=== PATIENT | female | born 1955 | race Caucasian/White ===

== ENCOUNTER 2021-05-12 13:00 | Inpatient (IN) | payer MEDICARE, OTHER ==
[2021-05-12] MEDS ORDERED: MORPHINE SULFATE 4 MG/ML SYRINGE IVP STA ×2 (13:20→13:40)
[2021-05-12] MEDS ORDERED: SODIUM CHLORIDE 0.9% 1,000 ML IV ONE (13:20)
[2021-05-12] MEDS ORDERED: ONDANSETRON 4 MG/2 ML VIAL IVP STA (13:20)
--- NOTE | 2021-05-12 13:24 | ED ---
Fall HPI - General Source: patient, EMS, RN notes reviewed Mode of arrival: EMS Limitations: physical limitation <Alexander Padilla - Last Filed: 05/12/21 14:02> <Elmer Quezada - Last Filed: 05/12/21 14:46> - General Chief Complaint: Fall Stated Complaint: Fall Time Seen by Provider: 05/12/21 13:14 - History of Present Illness Initial Comments: 66-year-old female presents emergency Department chief complaint of fall, right hip pain. Patient states she had a trip and fall last night. Patient laid on the ground. Throughout the night. Patient states she denies hitting her head and she is not taking blood thinners. She's had no prior orthopedic surgeries. Patient was given fentanyl by EMS and which she states has helped her pain. Patient denies abdominal pain no chest pain or shortness of breath. (Alexander Padilla) - Related Data Home Medications Medication Instructions Recorded Confirmed LORazepam [Ativan] 0.5 mg PO BID 07/07/14 07/07/14 Omeprazole [PriLOSEC] 20 mg PO AC-BRKFST 07/07/14 07/07/14 PARoxetine HCL 30 mg PO DAILY 07/07/14 07/07/14 Ranitidine HCl [Zantac] 150 mg PO HS 07/07/14 07/07/14 traZODone HCL [traZODone] 300 mg PO BID 07/07/14 07/07/14 Allergies Allergy/AdvReac Type Severity Reaction Status Date / Time No Known Allergies Allergy Verified 07/07/14 16:06 Review of Systems ROS Other: All systems not noted in ROS Statement are negative. <Alexander Padilla - Last Filed: 05/12/21 14:02> ROS Other: All systems not noted in ROS Statement are negative. <Elmer Quezada - Last Filed: 05/12/21 14:46> ROS Statement: Those systems with pertinent positive or pertinent negative responses have been documented in the HPI. Past Medical History Past Medical History: Fibromyalgia Additional Past Medical History / Comment(s): CHRONIC FATIGUE SYNDROME, SPINAL STENOSIS History of Any Multi-Drug Resistant Organisms: None Reported Past Surgical History: Tonsillectomy Additional Past Surgical History / Comment(s): CERVICAL SURGERY, BREAST CANCER LEFT BREAST REMOVED Past Psychological History: Anxiety, Depression Past Alcohol Use History: None Reported Past Drug Use History: None Reported <Alexander Padilla - Last Filed: 05/12/21 14:02> General Exam Limitations: physical limitation General appearance: alert, in no apparent distress Head exam: Present: atraumatic, normocephalic, normal inspection ENT exam: Present: mucous membranes dry Neck exam: Present: normal inspection, full ROM. Absent: tenderness Respiratory exam: Present: normal lung sounds bilaterally. Absent: respiratory distress, wheezes, rales, rhonchi, stridor Cardiovascular Exam: Present: normal rhythm, tachycardia, normal heart sounds. Absent: systolic murmur, diastolic murmur, rubs, gallop, clicks GI/Abdominal exam: Present: soft, normal bowel sounds. Absent: distended, tenderness, guarding, rebound, rigid Extremities exam: Present: other (Right hip is tender with palpation, leg is shortened and rotated, neurovascular intact) Neurological exam: Present: alert, oriented X3 Skin exam: Present: warm, dry, intact, normal color. Absent: rash <Alexander Padilla - Last Filed: 05/12/21 14:02> Course Vital Signs 05/12/21 05/12/21 13:04 13:20 Temperature 98.7 F Pulse Rate 108 H 116 H Respiratory 18 Rate Blood Pressure 146/79 O2 Sat by Pulse 95 92 L Oximetry Medical Decision Making - Lab Data Result diagrams: 05/12/21 13:21 05/12/21 13:21 <Alexander Padilla - Last Filed: 05/12/21 14:02> - Lab Data Result diagrams: 05/12/21 13:21 05/12/21 13:21 <Elmer Quezada - Last Filed: 05/12/21 14:46> - Medical Decision Making X-ray shows evidence of right IT fracture. Patient case discussed with nisha on- call for advanced orthopedics patient be admitted with medicine consult. (Alexander Padilla) EKG shows sinus tachycardia at 112 bpm MS interval is 170 QRS 72 QT interval 346 QTC is 472. EKG shows no ST segment elevation or depression. (Elmer Quezada) - Lab Data Lab Results 05/12/21 05/12/21 05/12/21 Range/Units 13:21 13:21 13:21 WBC 14.3 H (3.8-10.6) k/uL RBC 3.51 L (3.80-5.40) m/uL Hgb 11.6 (11.4-16.0) gm/dL Hct 33.6 L (34.0-46.0) % MCV 95.7 (80.0-100.0) fL MCH 33.1 (25.0-35.0) pg MCHC 34.6 (31.0-37.0) g/dL RDW 13.0 (11.5-15.5) % Plt Count 370 (150-450) k/uL MPV 6.6 Neutrophils % 86 % Lymphocytes % 4 % Monocytes % 8 % Eosinophils % 1 % Basophils % 0 % Neutrophils # 12.2 H (1.3-7.7) k/uL Lymphocytes # 0.6 L (1.0-4.8) k/uL Monocytes # 1.1 H (0-1.0) k/uL Eosinophils # 0.1 (0-0.7) k/uL Basophils # 0.0 (0-0.2) k/uL PT 9.7 (9.0-12.0) sec INR 0.9 (<1.2) APTT 23.1 (22.0-30.0) sec Sodium 129 L (137-145) mmol/L Potassium 4.2 (3.5-5.1) mmol/L Chloride 98 (98-107) mmol/L Carbon Dioxide 24 (22-30) mmol/L Anion Gap 7 mmol/L BUN 9 (7-17) mg/dL Creatinine 0.36 L (0.52-1.04) mg/dL Est GFR (CKD-EPI)AfAm >90 (>60 ml/min/1.73 sqM) Est GFR (CKD-EPI)NonAf >90 (>60 ml/min/1.73 sqM) Glucose 115 H (74-99) mg/dL Calcium 9.2 (8.4-10.2) mg/dL Total Bilirubin 0.7 (0.2-1.3) mg/dL AST 41 H (14-36) U/L ALT 36 H (4-34) U/L Alkaline Phosphatase 121 (38-126) U/L Creatine Kinase 223 H (30-135) U/L Total Protein 6.9 (6.3-8.2) g/dL Albumin 4.1 (3.5-5.0) g/dL Disposition <Alexander Padilla - Last Filed: 05/12/21 14:02> <Elmer Quezada - Last Filed: 05/12/21 14:46> Clinical Impression: Fall, Fracture, intertrochanteric, right femur Disposition: ADMITTED IP TO THIS HOSP Condition: Fair
[2021-05-12 13:34] LABS: Basophils % (A) 0 %; Eosinophils # (A) 0.1 k/uL (0-0.7); Eosinophils % (A) 1 %; HCT 33.6 % (34.0-46.0); HGB 11.6 gm/dL (11.4-16.0); Lymphocytes # (A) 0.6 k/uL (1.0-4.8); Lymphocytes % (A) 4 %; MCH 33.1 pg (25.0-35.0); MCHC 34.6 g/dL (31.0-37.0); MCV 95.7 fL (80.0-100.0); Mean Platelet Volume 6.6; Monocytes # (A) 1.1 k/uL (0-1.0); Monocytes % (A) 8 %; Neutrophils # (A) 12.2 k/uL (1.3-7.7); Neutrophils % (A) 86 %; Platelet Count 370 k/uL (150-450); RBC 3.51 m/uL (3.80-5.40); WBC 14.3 k/uL (3.8-10.6)
[2021-05-12 13:51] LABS: INR 0.9 (<1.2); Partial Thromboplastin Time 23.1 sec (22.0-30.0); Prothrombin Time 9.7 sec (9.0-12.0)
[2021-05-12 14:02] LABS: ALT 36 U/L (4-34); AST 41 U/L (14-36); African American GFR (CKD) >90 (>60 ml/min/1.73 sqM); Albumin 4.1 g/dL (3.5-5.0); Alkaline Phosphatase 121 U/L (38-126); Anion Gap 7 mmol/L; Blood Urea Nitrogen 9 mg/dL (7-17); Calcium 9.2 mg/dL (8.4-10.2); Carbon Dioxide 24 mmol/L (22-30); Chloride 98 mmol/L (98-107); Creatine Kinase 223 U/L (30-135); Glucose 115 mg/dL (74-99); Non-African American GFR(CKD) >90 (>60 ml/min/1.73 sqM); Potassium 4.2 mmol/L (3.5-5.1); Sodium 129 mmol/L (137-145); Total Bilirubin 0.7 mg/dL (0.2-1.3); Total Protein 6.9 g/dL (6.3-8.2)
[2021-05-12] MEDS ORDERED: NALOXONE 0.4 MG/ML 1 ML VIAL IV PRN (14:03)
[2021-05-12] MEDS ORDERED: ONDANSETRON 4 MG/2 ML VIAL IVP PRN (14:03)
--- NOTE | 2021-05-12 14:04 | XR ---
EXAMINATION TYPE: XR chest 1V DATE OF EXAM: 05/12/2021 COMPARISON: NONE HISTORY: Fall TECHNIQUE: Single frontal view of the chest is obtained. FINDINGS: There is no focal air space opacity, pleural effusion, or pneumothorax seen. The cardiac silhouette size is within normal limits. The osseous structures are intact. IMPRESSION: No acute process.
--- NOTE | 2021-05-12 14:05 | XR ---
EXAMINATION TYPE: XR Hip RT and AP Pelvis DATE OF EXAM: 05/12/2021 COMPARISON: NONE HISTORY: Pain after fall TECHNIQUE: A single AP view of the pelvis is obtained. Two views of the right hip are obtained. FINDINGS There is an acute, displaced right intertrochanteric fracture with foreshortening at the fracture sit e. Vascular calcifications are noted. IMPRESSION: Acute, displaced intertrochanteric right hip fracture.
[2021-05-12] MEDS: SODIUM CHLORIDE 0.9% 1,000 ML IV SCH (14:25)
[2021-05-12 14:54] LABS: Appearance,Urine Clear (Clear); Bilirubin,Urine Negative (Negative); Blood,Urine Negative (Negative); Color,Urine Yellow; Glucose,Urine (UA) Negative (Negative); Ketones,Urine Negative (Negative); Leukocyte Esterase,Urine Negative (Negative); Nitrite,Urine Negative (Negative); Protein,Urine Negative (Negative); Specific Gravity,Urine 1.015 (1.001-1.035); Urobilinogen,Urine <2.0 mg/dL (<2.0)
[2021-05-12] MEDS ORDERED: HYDROcodone/APAP 7.5-325MG 1 EACH TAB PO PRN (15:20)
[2021-05-12] MEDS ORDERED: CYCLOBENZAPRINE 10 MG TAB PO PRN (15:20)
[2021-05-12] MEDS ORDERED: TRANEXAMIC ACID 1,000 MG in SODIUM CHLORIDE 0.9% 250 ML IV ONE (15:24)
--- NOTE | 2021-05-12 15:37 | P.HPOR ---
History of Present Illness H&P Date: 05/12/21 Chief Complaint: R hip pain 66 yo female presented to ED with c/o Rt hip pain. She was at home when she states she is unsure what happened but tripped and fell onto her R hip causing severe pain. She was unable to ambulate after and called EMS. She was transported to [facility] for evaluation. She states pain in her R hip with motion, better at rest. Denies any numbness or tingling. Denies any other injury. States no LOC of BHT with fall. Does not c/o hurting anywhere else at this time. No f/c/sob/cp. Review of Systems 14 points review of systems completed and as stated in HPI, all other systems reviewed are negative. Past Medical History Past Medical History: Fibromyalgia Additional Past Medical History / Comment(s): CHRONIC FATIGUE SYNDROME, SPINAL STENOSIS History of Any Multi-Drug Resistant Organisms: None Reported Past Surgical History: Tonsillectomy Additional Past Surgical History / Comment(s): CERVICAL SURGERY, BREAST CANCER LEFT BREAST REMOVED Past Psychological History: Anxiety, Depression Past Alcohol Use History: None Reported Past Drug Use History: None Reported Medications and Allergies Home Medications Medication Instructions Recorded Confirmed Type Omeprazole [PriLOSEC] 20 mg PO DAILY 07/07/14 05/12/21 History Albuterol Sulfate [Ventolin HFA] 2 puff INHALATION RT-QID PRN 05/12/21 05/12/21 History Cholecalciferol [Vitamin D3 (25 100 mcg PO DAILY 05/12/21 05/12/21 History Mcg = 1000 Iu)] Fluticasone Propion/Salmeterol 1 puff INHALATION RT-BID 05/12/21 05/12/21 History [Wixela 500-50 Inhub] Furosemide [Lasix] 20 mg PO DAILY 05/12/21 05/12/21 History Gabapentin 300 mg PO DAILY@1400 05/12/21 05/12/21 History Gabapentin 600 mg PO BID@0900,2100 05/12/21 05/12/21 History HYDROcodone/APAP 10-325MG [Moseley 1 tab PO BID 05/12/21 05/12/21 History 10-325] Methocarbamol [Robaxin-750] 750 mg PO TID 05/12/21 05/12/21 History Mirtazapine [Remeron] 15 mg PO HS 05/12/21 05/12/21 History Potassium Chloride ER [K-Dur 10] 10 meq PO BID 05/12/21 05/12/21 History Sodium Chloride Tab 1 gm PO TID 05/12/21 05/12/21 History Tiotropium 2.5 Mcg/Puff [Spiriva 2 puff INHALATION RT-DAILY 05/12/21 05/12/21 History Respimat 2.5 Mcg] Allergies Allergy/AdvReac Type Severity Reaction Status Date / Time No Known Allergies Allergy Verified 05/12/21 14:59 Physical Examination Osteopathic Statement: *. No significant issues noted on an osteopathic structural exam other than those noted in the History and Physical/Consult. Patient is alert and oriented 3 appears well-nourished well-hydrated is in no acute distress. They does not appear septic. somewhat Unkempt Tenderness palpation over the greater trochanter on the right was swelling and ecchymosis in this area. no tenderness to palpation of the cervical thoracic or lumbar spine. Lower extremities with 5 out of 5 strength in all major muscle groups Upper extremities show 5/5 strength in all major muscle groups. There is FROM that is painless of the b/l UE and LE in all major joints. They are intact to light touch sensation in L2 to S1 nerve distribution. DTR 2 out of 4 off Patient has palpable dorsalis pedis was posterior tibial pulses. positive radial and ulnar pulses bilaterally Compartments are soft and compressible. Patient shows a negative Homans, Lopez's, negative Babinski's negative clonus bilaterally. negative straight leg raise bilaterally. No tensioning signs. Cranial nerves II through XII are grossly intact. Overall alignment is well-maintained in the sagittal coronal planes. Pain with logroll of right hip Results AP pelvis and right hip films demonstrate a right reverse oblique intertrochanteric with subtrochanteric extension fracture is displaced rotated comminuted. No other fractures noted within the pelvis or hips. Femur films are pending. - Labs Labs: Abnormal Lab Results - Last 24 Hours (Table) 05/12/21 05/12/21 Range/Units 13:21 13:21 WBC 14.3 H (3.8-10.6) k/uL RBC 3.51 L (3.80-5.40) m/uL Hct 33.6 L (34.0-46.0) % Neutrophils # 12.2 H (1.3-7.7) k/uL Lymphocytes # 0.6 L (1.0-4.8) k/uL Monocytes # 1.1 H (0-1.0) k/uL Sodium 129 L (137-145) mmol/L Creatinine 0.36 L (0.52-1.04) mg/dL Glucose 115 H (74-99) mg/dL AST 41 H (14-36) U/L ALT 36 H (4-34) U/L Creatine Kinase 223 H (30-135) U/L H & H 05/12/21 Range/Units 13:21 Hgb 11.6 (11.4-16.0) gm/dL Hct 33.6 L (34.0-46.0) % Coagulation 05/12/21 Range/Units 13: INR 0.9 (<1.2) Result Diagrams: 05/12/21 13:21 05/12/21 13:21 Assessment and Plan Assessment: 66-year-old female status post fall from standing right hip reverse oblique intratrochanteric/subtrochanteric fracture displaced comminuted closed rotated Plan: -Appreciate consumer services consultant and team management. - medical clearance for surgery -Activity: bedrest at this time - Stephens catheter in place -Pain control: continue with morphine IV for breakthrough pain had Moseley 7.5 as well as Flexeril for muscle spasms and pain is well -Meds: [reviewed] -GI ppx: senna, Miralax -DVT PPX: mechanical with SCDs and CACHORRO hose at this time -Hygiene: maintaining good hygiene. Hibiclens shower or wipes before surgery tomorrow -Encourage IS 10x/hr - plan on OR for intramedullary nail fixation and open reduction internal fixation right hip on 05/13/2021 -Dispo: [Pending] Time with Patient: Greater than 30
[2021-05-12] MEDS ORDERED: TRANEXAMIC ACID 1,000 MG in SODIUM CHLORIDE 0.9% 100 ML IV STA (15:55)
[2021-05-12] MEDS ORDERED: TRANEXAMIC ACID 1,000 MG in SODIUM CHLORIDE 0.9% 100 ML IVPB ONE (16:00)
--- NOTE | 2021-05-12 16:02 | XR ---
EXAMINATION TYPE: XR femur RT DATE OF EXAM: 05/12/2021 CLINICAL HISTORY: Fracture TECHNIQUE: Two views of the distal right femur are obtained. COMPARISON: None FINDINGS: There is no definite acute fracture or dislocation of the distal right femur. There is a ri ght knee joint effusion and soft tissue swelling. IMPRESSION: There is no acute fracture or dislocation in the distal right femur. There is a right kn ee joint effusion and soft tissue swelling about the knee.
[2021-05-12] MEDS: MORPHINE SULFATE 4 MG/ML SYRINGE IV PRN (18:38)
[2021-05-13] MEDS: GABAPENTIN 300 MG CAP PO SCH ×3 (00:03→21:44)
[2021-05-13] MEDS: MIRTAZAPINE 15 MG TAB PO SCH ×2 (00:03→21:46)
[2021-05-13] MEDS: MORPHINE SULFATE 4 MG/ML SYRINGE IV PRN ×3 (00:03→11:26)
--- NOTE | 2021-05-13 03:24 | P.CONS ---
History of Present Illness - Reason for Consult Consult date: 05/13/21 - History of Present Illness Patient is a 66 -year-old female with a PMH of COPD and fibromyalgia and osteoporosis presented to the emergency room after a fall. The patient had reported that she tripped and fell yesterday while trying to feed her cats. Patient noted that she fell onto her right hip and was unable to get up and had to wait until the following day when her friend came in to check on her and found her on the ground. The patient reports no further pain. She denied additional complaints. Denied chest discomfort, shortness of breath, fever, chills, cough. Denied abdominal pain, nausea, vomiting, diarrhea. Patient reports that she lives by herself and is able to complete most of her ADLs independently. Denied experiencing exertional dyspnea or chest pain. EKG in the emergency room revealed sinus tachycardia at 112 bpm with left anterior fascicular block. Chest x-ray was unremarkable. With a right hip x-ray showing an acute displaced intertrochanteric right hip fracture. Laboratory evaluation was remarkable for WBC count of 14.3, sodium 139, AST 41, ALT 36, CK 223, and UA unremarkable. Review of systems: Pertinent positives and negatives as discussed in HPI, a complete review of sys tems was performed and all other systems are negative. Physical examination: General: non toxic, no distress, appears at stated age, normal weight Derm: no unusual rashes/lesions no unusual ecchymoses, warm, dry Head: atraumatic, normocephalic, symmetric Eyes: EOMI, no lid lag, anicteric sclera, pupils equal round reactive to light ENT: Nose and ears atraumatic, no thrush, no pharyngeal erythema Neck: No thyromegaly, no cervical lymphadenopathy, trachea midline, supple Mouth: no lip lesion, mucus membranes moist Cardiovascular: S1S2 reg, no murmur, positive posterior tibial pulse bilateral, no edema, capillary refill less than 2 seconds Lungs: CTA bilateral, no rhonchi, no rales , no accessory muscle use Abdominal: soft, nontender to palpation, no guarding, no appreciable organomegaly, normal bowel sounds Ext: no gross muscle atrophy, muscle strength 5 out of 5 in all 4 extremities g rossly except for right lower extremity due to pain, no contractures, Neuro: CN II-XI grossly intact, light touch intact all 4 extremities, finger to nose within normal limits, Psych: Alert, oriented, appropriate affect Assessment/plan Preoperative evaluation for right hip fracture -Patient with METS > 4, although with sodium 129. Continue with gentle hydration and monitor BMP -Would recommend to hold off on surgery if sodium less than 130 -Defer management including pain control and DVT prophylaxis to the surgery service Chronic conditions: COPD -Continue with home meds Past Medical History Past Medical History: Fibromyalgia Additional Past Medical History / Comment(s): CHRONIC FATIGUE SYNDROME, SPINAL STENOSIS History of Any Multi-Drug Resistant Organisms: None Reported Past Surgical History: Tonsillectomy Additional Past Surgical History / Comment(s): CERVICAL SURGERY, BREAST CANCER LEFT BREAST REMOVED Past Psychological History: Anxiety, Depression Past Alcohol Use History: None Reported Past Drug Use History: None Reported Medications and Allergies Home Medications Medication Instructions Recorded Confirmed Type Omeprazole [PriLOSEC] 20 mg PO DAILY 07/07/14 05/12/21 History Albuterol Sulfate [Ventolin HFA] 2 puff INHALATION RT-QID PRN 05/12/21 05/12/21 History Cholecalciferol [Vitamin D3 (25 100 mcg PO DAILY 05/12/21 05/12/21 History Mcg = 1000 Iu)] Fluticasone Propion/Salmeterol 1 puff INHALATION RT-BID 05/12/21 05/12/21 History [Wixela 500-50 Inhub] Furosemide [Lasix] 20 mg PO DAILY 05/12/21 05/12/21 History Gabapentin 300 mg PO DAILY@1400 05/12/21 05/12/21 History Gabapentin 600 mg PO BID@0900,2100 05/12/21 05/12/21 History HYDROcodone/APAP 10-325MG [Bob White 1 tab PO BID 05/12/21 05/12/21 History 10-325] Methocarbamol [Robaxin-750] 750 mg PO TID 05/12/21 05/12/21 History Mirtazapine [Remeron] 15 mg PO HS 05/12/21 05/12/21 History Potassium Chloride ER [K-Dur 10] 10 meq PO BID 05/12/21 05/12/21 History Sodium Chloride Tab 1 gm PO TID 05/12/21 05/12/21 History Tiotropium 2.5 Mcg/Puff [Spiriva 2 puff INHALATION RT-DAILY 05/12/21 05/12/21 History Respimat 2.5 Mcg] Allergies Allergy/AdvReac Type Severity Reaction Status Date / Time No Known Allergies Allergy Verified 05/12/21 14:59 Physical Exam Vitals: Vital Signs Temp Pulse Pulse Resp BP BP Pulse Ox 05/13/21 00:32 98.2 F 102 H 14 109/63 98 05/12/21 20:50 98 05/12/21 20:35 98.6 F 119 H 18 114/67 83 L 05/12/21 18:39 89 16 122/75 94 L 05/12/21 17:00 97.6 F 112 H 16 112/80 94 L 05/12/21 13:20 98.7 F 116 H 18 146/79 92 L 05/12/21 13:04 108 H 95 Intake and Output 05/12/21 05/12/21 05/13/21 14:59 22:59 06:59 Output Total 800 Balance -800 Output: Urine 800 Other: Weight 42.638 kg Results CBC & Chem 7: 05/12/21 13:21 05/12/21 13:21 Labs: Abnormal Lab Results - Last 24 Hours (Table) 05/12/21 05/12/21 Range/Units 13:21 13:21 WBC 14.3 H (3.8-10.6) k/uL RBC 3.51 L (3.80-5.40) m/uL Hct 33.6 L (34.0-46.0) % Neutrophils # 12.2 H (1.3-7.7) k/uL Lymphocytes # 0.6 L (1.0-4.8) k/uL Monocytes # 1.1 H (0-1.0) k/uL Sodium 129 L (137-145) mmol/L Creatinine 0.36 L (0.52-1.04) mg/dL Glucose 115 H (74-99) mg/dL AST 41 H (14-36) U/L ALT 36 H (4-34) U/L Creatine Kinase 223 H (30-135) U/L
[2021-05-13] MEDS: SODIUM CHLORIDE 0.9% 1,000 ML IV SCH ×3 (03:46→21:47)
[2021-05-13] MEDS ORDERED: TRANEXAMIC ACID 1,000 MG in SODIUM CHLORIDE 0.9% 100 ML IVPB ONE ×4 (06:00)
[2021-05-13] MEDS: SYMBICORT 160-4.5 MCG INHALER INHALATION SCH ×2 (07:20→20:49)
[2021-05-13] MEDS: SODIUM CHLORIDE TAB 1 GM TAB PO SCH ×3 (07:59→21:44)
[2021-05-13] MEDS: HYDROcodone/APAP 10-325MG 1 EACH TAB PO SCH ×2 (07:59→21:44)
[2021-05-13] MEDS ORDERED: ALBUTEROL NEBULIZED 2.5 MG/3 ML INHALATION PRN (08:00)
[2021-05-13 09:09] LABS: HCT 27.4 % (37.2-46.3); MCH 32.6 pg (27.0-32.0); MCHC 32.8 g/dL (32.0-37.0); MCV 99.3 fL (80.0-97.0); Mean Platelet Volume 9.4 fL (9.5-12.2); Platelet Count 303 X 10*3/uL (140-440); RBC 2.76 X 10*6/uL (4.10-5.20); RDW 13.7 % (11.5-14.5); WBC 10.02 X 10*3/uL (4.50-10.00)
[2021-05-13 09:44] LABS: Albumin 3.6 g/dL (3.80-4.90); Albumin/Globulin Ratio 1.71 (1.60-3.17); Anion Gap 4.4 mmol/L (4.00-12.00); Carbon Dioxide 27.6 mmol/L (21.6-31.8); Globulin 2.1 g/dL (1.6-3.3); Potassium 4.3 mmol/L (3.5-5.5); Total Bilirubin 0.6 mg/dL (0.3-1.2); Total Protein 5.7 g/dL (6.2-8.2)
[2021-05-13] MEDS: IPRATROPIUM 0.5 MG/2.5 ML NEBU INHALATION SCH ×4 (10:02→20:49)
--- NOTE | 2021-05-13 10:05 | P.PN ---
Subjective Progress Note Date: 05/13/21 Principal diagnosis: R IT fracture Pt s/e this AM doing OK. Pain in R hip. Stephens in place. Medical consult noted. No f/c/. Some SOB. Getting breathing treatment. No CP. Objective - Vital Signs Vital signs: Vital Signs Temp 98.8 F 05/13/21 06:58 Pulse 96 05/13/21 07:34 Resp 18 05/13/21 08:00 BP 117/62 05/13/21 06:58 Pulse Ox 100 05/13/21 07:21 Intake & Output 05/12/21 05/13/21 05/13/21 18:59 06:59 18:59 Output Total 1000 Balance -1000 Weight 42.638 kg Output: Urine 1000 Other: Voiding Method Indwelling Catheter Indwelling Catheter - Exam Patient is alert and oriented 3 appears well-nourished well-hydrated is in no acute distress. They does not appear septic. somewhat Unkempt Tenderness palpation over the greater trochanter on the right was swelling and ecchymosis in this area. no tenderness to palpation of the cervical thoracic or lumbar spine. Lower extremities with 5 out of 5 strength in all major muscle groups Upper extremities show 5/5 strength in all major muscle groups. There is FROM that is painless of the b/l UE and LE in all major joints. They are intact to light touch sensation in L2 to S1 nerve distribution. DTR 2 out of 4 off Patient has palpable dorsalis pedis was posterior tibial pulses. positive radial and ulnar pulses bilaterally Compartments are soft and compressible. Patient shows a negative Homans, Lopez's, negative Babinski's negative clonus bilaterally. negative straight leg raise bilaterally. No tensioning signs. Cranial nerves II through XII are grossly intact. Overall alignment is well-maintained in the sagittal coronal planes. Pain with logroll of right hip - Labs CBC & Chem 7: 05/13/21 05:41 05/13/21 05:41 Labs: Abnormal Lab Results - Last 24 Hours (Table) 05/12/21 05/12/21 05/13/21 Range/Units 13:21 13:21 05:41 WBC 14.3 H 10.02 H (3.8-10.6) k/uL RBC 3.51 L 2.76 L (3.80-5.40) m/uL Hgb 9.0 L (12.0-15.0) g/dL Hct 33.6 L 27.4 L (34.0-46.0) % MCV 99.3 H (80.0-97.0) fL MCH 32.6 H (27.0-32.0) pg MPV 9.4 L (9.5-12.2) fL Neutrophils # 12.2 H (1.3-7.7) k/uL Lymphocytes # 0.6 L (1.0-4.8) k/uL Monocytes # 1.1 H (0-1.0) k/uL Sodium 129 L (137-145) mmol/L BUN (9.0-27.0) mg/dL Creatinine 0.36 L (0.52-1.04) mg/dL Glucose 115 H (74-99) mg/dL Calcium (8.7-10.3) mg/dL AST 41 H (14-36) U/L ALT 36 H (4-34) U/L Creatine Kinase 223 H (30-135) U/L Total Protein (6.2-8.2) g/dL Albumin (3.80-4.90) g/dL 05/13/21 Range/Units 05:41 WBC (3.8-10.6) k/uL RBC (3.80-5.40) m/uL Hgb (12.0-15.0) g/dL Hct (34.0-46.0) % MCV (80.0-97.0) fL MCH (27.0-32.0) pg MPV (9.5-12.2) fL Neutrophils # (1.3-7.7) k/uL Lymphocytes # (1.0-4.8) k/uL Monocytes # (0-1.0) k/uL Sodium 133 L (137-145) mmol/L BUN 8.0 L (9.0-27.0) mg/dL Creatinine 0.4 L (0.52-1.04) mg/dL Glucose 114 H (74-99) mg/dL Calcium 8.0 L (8.7-10.3) mg/dL AST (14-36) U/L ALT (4-34) U/L Creatine Kinase (30-135) U/L Total Protein 5.7 L (6.2-8.2) g/dL Albumin 3.60 L (3.80-4.90) g/dL Assessment and Plan Assessment: 66-year-old female status post fall from standing right hip reverse oblique intratrochanteric/subtrochanteric fracture displaced comminuted closed rotated Plan: -Appreciate furniture rental consultant and team management. - medical clearance for surgery -Activity: bedrest at this time - Stephens catheter in place -Pain control: continue with morphine IV for breakthrough pain had [place] 7.5 as well as Flexeril for muscle spasms and pain is well -Meds: [reviewed] -GI ppx: senna, Miralax -DVT PPX: mechanical with SCDs and CACHORRO hose at this time -Hygiene: maintaining good hygiene. Hibiclens shower or wipes before surgery tomorrow -Encourage IS 10x/hr - Confirm NPO -OR today -Dispo: [Pending] Orthopedic Surgery Risk Review Yaima Ruvalcaba is a 66-year-old female presenting for evaluation of sudden onset right hip pain, inability to ambulate after all from standing. It was my pleasure to have seen and examined Yaima Ruvalcaba. In our visit today we have had a chance to go over subjective complaints, physical examination findings and treatments including the natural course history without intervention and various interventional options. Her imaging demonstrates right reverse oblique subtrochanteric hip fracture. On physical exam, Ramón Ruvalcaba demonstrates pain with motion of right hip, which is NV intact at this time. I have explained to the patient that this fracture needs stabilization. Based on the patients imaging, physical exam, and the rapid progression and disabling nature of her symptoms, at this time I recommend surgery in the form or a: Right hip open reduction internal fixation into the nail I discussed the risk and benefits of this procedure at length with Yaima Ruvalcaba. Questions were invited and answered, and the patient wishes to proceed as outlined below. Currently, I am recommendin. Right hip open reduction with internal medullary nail fixation 2. Review of surgical risks and benefits as well as an educational packet on the proposed surgical procedure. Risks: All surgical procedures come with inherent risks, including those related to positioning, anesthesia, intraoperative findings, and postoperative complications. It is important to understand that surgery does not come with any guarantee of a successful outcome as complications and adverse events are always possible. The patient was given a handout discussing the surgical procedure and risks associated with the intervention, both of which were discussed with the patient. These risks include but are not limited to the following: - Experiencing same, different or even worse symptoms compared to before surgery. - Requiring further surgery or other forms of treatment presently or at some time in the future . - On an extreme but fortunately relatively rare basis severe complication such as blindness, stroke, heart attack, temporary and/or permanent nerve injury, paralysis, coma, or may occur, sometimes without known explanation. - Surgical complications may include but are not limited to risk of infection, fluid accumulation in the surgical dissection site, including a seroma or hematoma, that requires additional surgery, wound drainage, bleeding, new numbness or weakness, vision changes/loss, spinal fluid leakage, non-healing and/or infected incision, headaches, difficulty or inability to swallow, hoarseness, hemopneumothorax, pneumothorax, injury to nerves, spinal cord, blood vessels, lymphatics or other vital organs (i.e., bowel injury, injury to the great vessels); heterotopic bone formation; complications related to the hardware such as screws, rods, including misplaced hardware, device failure, hardware fracture/breakage, or hardware loosening; retained surgical instrumentations or devices and the need for further surgery. - Medical risks of the planned surgery include but are not limited to generalized Infections to the whole body or local areas outside of the surgical site (sepsis), heart attack, bleeding, anaphylaxis, meningitis, seizure, epilepsy, hearing loss, burn cortez, laceration of the head or other areas of the body, bruising, hypersensitivity of the skin, bladder over distension; allergic reaction; shoulder injury related to positioning; fat, blood and air clots to other areas of the body like heart, lungs, brain; failure of internal organs such as lungs, kidneys, liver and excessive bleeding. If blood transfusions are necessary, note that transfusions may cause intolerance reactions such as anaphylaxis or other complex reactions. Despite best efforts, the results of surgery might not heal in terms of bone, soft tissues such as skin, fascia, ligaments, and joints. [facility] is an educational center that serves as a training facility for physician assistants, nurses, orthopedic residents and fellows. Residents are physicians who are completing their surgical intensive training following medical school. They assist in the operating room with direct supervision of the attending surgeons. [place] are surgeons who have completed their training and eligible for board certification. They have opted for an elective year of more specialized training in their field. They assist in the operating room under the supervision of the attending surgeons. Physician assistants are medically trained surgical providers who function in the outpatient, inpatient, and operating room setting under the direct supervision of the attending surgeon. [facility] has multiple operating rooms with single and overlapping rooms running daily. They currently function under the required guidelines as produced by the [facility] Finance Committee with regards to the overlapping rooms and will continue to comply with changes to this policy as they occur. The requirements include and are complied with as follows: (1) the critical portions of the overlapping rooms will not occur at the same time, (2) the attending physician will be physically present during the critical portions of the procedure and immediately available during the entire case, and (3) a back-up a ttending is designated should the primary attending not be immediately available. The patient has had a chance to review all the listed information, has been given print outs detailing this information, and has had all his/her questions answered to their satisfaction. It was my pleasure to have seen and examined Yaima Darling. In our visit today we have had a chance to go over my understanding of our patient's current condition, the natural course history without intervention and various interventional options. Questions were invited and answered, and the patient w ishes to proceed as outlined above. I have seen and examined the patient for 25 minutes and we have spent more than 50% of the time in repeat and detailed counseling about the patient's condition, its natural course history with out and as much as can be predicted with surgery and re-review of various surgical treatment options. In conclusion, Yaima Darling requested we proceed with the above suggested surgery and are willing to accept risks and limitations of the suggested surgery as nature of the disease process and our best attempts at treatment for the condition. Thank you again for allowing us to be part of your patient's care. Please don't hesitate to contact me if you have any further questions. Signed and authenticated by: Theron Pierson DO [facility] [address] [place], [address] [address]
--- NOTE | 2021-05-13 11:07 | P.PN ---
Progress Note - Text Progress Note Date: 05/13/21 I saw and evaluated the patient independently today. I agree with the documented assessment and plan by my colleague earlier this morning with no changes. Pt is cleared for surgery without need for further testing. Medicine will continue to follow along for management.
[2021-05-13 11:50] LABS: Reticulocyte % 2.4 % (0.5-2.0)
[2021-05-13] MEDS ORDERED: IV FLUID CONTINUATION 1,000 ML IV ONE (15:02)
[2021-05-13] MEDS ORDERED: ONDANSETRON 4 MG/2 ML VIAL IVP ONE (15:03)
[2021-05-13] MEDS ORDERED: DEXAMETHASONE SOD PHOSPHATE 4 MG/ML 1 ML VIAL IVP ONE (15:03)
[2021-05-13] MEDS ORDERED: TRANEXAMIC ACID 1,000 MG/10 ML VIAL IRRIGATION ONE (15:40)
[2021-05-13] MEDS ORDERED: MIDAZOLAM 2 MG/2 ML VIAL ONE (16:28)
[2021-05-13] MEDS ORDERED: PROPOFOL 10 MG/ML 20 ML VIAL IV ONE (16:28)
[2021-05-13] MEDS ORDERED: PHENYLEPHRINE-0.9% NACL SYG 1,000 MCG/10 ML SYRINGE ONE (16:28)
[2021-05-13] MEDS ORDERED: HYDROmorphone (PF) 1 MG/ML ONE (16:28)
[2021-05-13] MEDS ORDERED: KETAMINE 10 MG/ML 20 ML VIAL ONE (16:28)
[2021-05-13] MEDS ORDERED: TRANEXAMIC ACID 1,000 MG/10 ML VIAL ONE (16:28)
[2021-05-13] MEDS ORDERED: SODIUM CHLORIDE 0.9% 100 ML BAG ONE (16:28)
[2021-05-13] MEDS ORDERED: fentaNYL (PF) 50 MCG/ML 2 ML AMP ONE (16:28)
[2021-05-13 17:11] LABS: % Iron Saturation 11.04 (12.00-45.00)
[2021-05-13] MEDS ORDERED: ceFAZolin 1,000 MG in SODIUM CHLORIDE 0.9% 1,000 ML IRRIGATION ONE (17:26)
[2021-05-13] MEDS ORDERED: LACTATED RINGERS 1,000 ML IV ONE (17:44)
[2021-05-13 18:50] LABS: Folate, Serum 18.5 ng/mL
[2021-05-13] MEDS ORDERED: HYDROcodone/APAP 5-325MG 1 EACH TAB PO PRN (18:56)
[2021-05-13] MEDS ORDERED: NALOXONE 0.4 MG/ML 1 ML VIAL IV PRN (18:56)
--- NOTE | 2021-05-13 20:28 | XR ---
PROCEDURE: XR femur RT - 4V DATE AND TIME: 05/13/2021 7:57 PM CLINICAL INDICATION: PHH; s/p right hip IM nail TECHNIQUE: Department protocol COMPARISON: Same day radiographs. FINDINGS: Orthogonal imaging from the hip to the knee using 4 views with AP and crosstable lateral te chnique. The IM bailee is in place, with interval improvement in anatomic position. No additional fractures. No unexpected radiopaque foreign bodies. IMPRESSION: Postop status post right IM bailee.
[2021-05-13 20:34] LABS: Basophils % (A) 0 %; Eosinophils # (A) 0.2 k/uL (0-0.7); Eosinophils % (A) 2 %; HCT 28.2 % (34.0-46.0); Lymphocytes # (A) 0.4 k/uL (1.0-4.8); Lymphocytes % (A) 3 %; MCH 33.9 pg (25.0-35.0); MCHC 34.2 g/dL (31.0-37.0); Mean Platelet Volume 6.7; Monocytes # (A) 0.4 k/uL (0-1.0); Monocytes % (A) 3 %; Neutrophils # (A) 10.8 k/uL (1.3-7.7); Neutrophils % (A) 92 %; Platelet Count 292 k/uL (150-450); RBC 2.85 m/uL (3.80-5.40); RDW 13.2 % (11.5-15.5); WBC 11.8 k/uL (3.8-10.6)
[2021-05-13 20:48] LABS: HGB 9.6 gm/dL (11.4-16.0)
[2021-05-13] MEDS: SENNOSIDES-DOCUSATE SODIUM 1 EACH TAB PO SCH (21:46)
[2021-05-14] MEDS: SODIUM CHLORIDE 0.9% 1,000 ML IV SCH ×2 (05:47→16:53)
--- NOTE | 2021-05-14 07:23 | XR ---
EXAMINATION TYPE: XR femur RT DATE OF EXAM: 05/13/2021 COMPARISON: Earlier same date HISTORY: ORIF right femur TECHNIQUE: 13 fluoroscopic spot images were submitted for review. Reported fluoroscopic time 3 minute s and 14 seconds. FINDINGS: There are 13 fluoroscopic spot images submitted for review where hardware is seen now spanning the ri ght intratrochanteric fracture. Full details please see the operative reports. IMPRESSION: There are 13 fluoroscopic spot images submitted for review where hardware is seen now spanning the ri ght intratrochanteric fracture. Full details please see the operative reports.
[2021-05-14] MEDS: ENOXAPARIN 30 MG/0.3 ML SYRINGE SQ SCH (07:50)
[2021-05-14] MEDS: HYDROcodone/APAP 10-325MG 1 EACH TAB PO SCH ×2 (07:50→20:44)
[2021-05-14] MEDS: GABAPENTIN 300 MG CAP PO SCH ×2 (07:50→20:46)
[2021-05-14] MEDS: SODIUM CHLORIDE TAB 1 GM TAB PO SCH ×3 (08:02→23:11)
[2021-05-14] MEDS: SYMBICORT 160-4.5 MCG INHALER INHALATION SCH ×2 (08:22→20:40)
[2021-05-14] MEDS: IPRATROPIUM 0.5 MG/2.5 ML NEBU INHALATION SCH ×4 (08:23→20:40)
--- NOTE | 2021-05-14 10:32 | P.OP ---
Date of Procedure: 05/13/21 Preoperative Diagnosis: R hip comminuted, closed displaced, rotated subtrochanteric hip fracture Postoperative Diagnosis: R hip comminuted, closed displaced, rotated subtrochanteric hip fracture Procedure(s) Performed: 1. Open reduction and internal fixation R hip fracture 2. Intramedullary nail fixation R hip Implants: [employer] Intertan 34 x 11 x 130 deg 1 cable Anesthesia: MAC, spinal Surgeon: Theron Pierson Solar Installation Supervisor #1: Conor Cho (Was present for the entire case and necessary due to the complexity of the case) Estimated Blood Loss (ml): 150 IV fluids (ml): 1,500 Urine output (ml): 200 Pathology: none sent Condition: stable Disposition: PACU Indications for Procedure: 58-year-old female sustained a fall from standing at home onto her right hip. She was at home when she tripped and fell over a rug and she denies any blunt head trauma loss consciousness but she had exquisite pain in her right hip was unable to ambulate afterwards and was brought to the hospital via EMS. We discussed risks and benefits of surgery versus non-surgery and she elected for surgical intervention of this hip fracture. Operative Findings: Unstable subtrochanteric reverse oblique fracture Description of Procedure: The patient was seen and examined in the preoperative area. All preoperative protocols were followed. Informed consent was obtained risks and benefits of the procedure were discussed at length. Risks including bleeding infection damage to the surrounding tissue and risk of reoperation were discussed with the patient. Risk of anesthesia up to and including was a discussed with the patient. These are outlined in the risk reviewed. They were willing to accept these risks and all of the risks of surgery. The patient was given a weight- based dose of antibiotics in the form of 2 g Ancef IVPB 1. The patient was seen and evaluated by the anesthesia team who deemed them fit for surgery. The site was marked, the patient was willing to proceed with the procedure. The patient was transferred to the operative suite by the Department of anesthesia. There were then drifted off to sleep by the department of anesthesia and spinal with sedation anesthesia was used. Once adequate anesthesia had been obtained the patient was carefully transferred to the operative bed. All bony prominences were padded accordingly. SCDs were placed on the nonoperative lower extremities. Arms were well padded. Patient was transferred over to the hand table and was placed in Jacqueline boots on the operative leg and her nonoperativelyin a well-leg barraza. Her arms were well padded and placed on arm boards. She was secured to the table safety strap and tape. Once she was in good position with the post in place we then performed a reduction under fluoroscopic guidance of the right hip. We got the reduction as close as possible in AP and lateral with the understanding that we are can need to open this fracture to reduce it completely. Preoperative briefing was done with the operative team and everyone was ready for the procedure to start. The patients right leg was then prepped and draped in the normal sterile fashion. Timeout was then performed and all parties in agreement with the procedure to be performed. Was identified under fluoroscopic guidance the fracture site as well as level. Incision was made over the lateral aspect of the leg taken of the tensor fascia and the vastus lateralis was then elevated off the bone and this allowed for good visualization of the fracture in this area the fracture was then reduced using a combination of a Jacqueline table clamps and pins. We then placed a wire around the femur just distal to the greater and lesser trochanter on the side. The wire was then tensioned and the fracture was held into position once it was tensioned the fracture was then reduced and allowed for holding of reduction of his fracture. We then turned our attention attention proximally where the main incision to some metatarsal greater trochanteric dissection taken down to the tip of the greater trochanter and awl was used to access the tip of the greater trochanter in line with the femoral neck on lateral films for starting point. The awl was then advanced. Once it was in good position of ball-tipped guidewire was placed and confirmed to be within bone down to the superior portion patella. Then removed an opening reamer was passed over the wire. Once this was done sequential reaming was performed with a 9 mm 11 mm and 13 mm reamers under fluoroscopic guidance. The fracture remained reduced all time once we finished reaming an 11 x 34 x 130 nail was selected and was carefully impacted into place once it was in good position we then placed the jig on the nail for the lag screw. We then placed a pin through the jig for the lag screw and confirmed to be center center within the neck and head on AP and lateral within 10 mm of the subcu chondral bone. We then drilled the compression screw for the [employer] nail and placed the spatula was then drilled over the wire for the lag screw. A 90 mm leg screw was selected and placed and in good position we then placed the compression screw. We did perform about 5 mm of compression which allowed the fracture to be compressed and be in good position again. Once this was done we then removed the pin and the jig from this area. We then turned attention distally to the distal locking screw perfect circles were gained in the static locking hole and we were able to drill and place a static locking screw distally. We confirmed good position on AP and lateral. Final x-rays were then taken of the distal portion of the nail AP and lateral as well as the proximal portion and through the fracture fracture held reduction nail is in good position. Then copiously irrigated the wounds with normal sterile saline with then closed the deep fascia with 0 Vicryl in a simple and running form close the tensor fascia renate running locking form with #1 Vicryl. We then closed the deep subcu with 0 Vicryl the superficial subcu with 2-0 Vicryl and the skin with skin sanjay. The area was then cleaned and dressed sterilely with sterile Adaptic ABDs and tape. The patient was then transferred back to their hospital bed. There were awakened by department of anesthesia having tolerated the procedure very well with no complications. The patient was then transported to the postoperative care unit in stable condition.
--- NOTE | 2021-05-14 10:59 | P.PN ---
Subjective Progress Note Date: 05/14/21 No new complaints. Surgery went well without complication. Patient reports good pain control. Sitting in chair, resting comfortably. Objective - Vital Signs Vital signs: Vital Signs Temp 98.1 F 05/14/21 07:36 Pulse 92 05/14/21 08:33 Resp 16 05/14/21 08:33 BP 106/59 05/14/21 07:36 Pulse Ox 94 L 05/14/21 08:24 Intake & Output 05/13/21 05/14/21 05/14/21 18:59 06:59 18:59 Intake Total 1251 900 200 Output Total 275 900 Balance 976 0 200 Intake: IV 951 300 Oral 300 600 200 Output: Urine 100 900 Estimated Blood Loss 175 Other: Voiding Method Indwelling Catheter Indwelling Catheter Indwelling Catheter - Exam Preoperative evaluation for right hip fracture -Patient with METS > 4, although with sodium 129. Continue with gentle hydration and monitor BMP -Defer management including pain control and DVT prophylaxis to the surgery service -Doing well POD 1 following procedure Chronic conditions: COPD, Fibromyalgia, Mood Disorder -Continue with home meds as reconciled -Pending PT/OT eval - Labs CBC & Chem 7: 05/13/21 20:18 05/13/21 05:41 Labs: Abnormal Lab Results - Last 24 Hours (Table) 05/13/21 05/13/21 05/13/21 Range/Units 05:41 11:19 20:18 WBC 11.8 H (3.8-10.6) k/uL RBC 2.85 L (3.80-5.40) m/uL Hgb 9.6 L D (11.4-16.0) gm/dL Hct 28.2 L (34.0-46.0) % Neutrophils # 10.8 H (1.3-7.7) k/uL Lymphocytes # 0.4 L (1.0-4.8) k/uL Retic Count 2.4 H (0.5-2.0) % Iron 33 L (50-170) ug/dL % Saturation 11.04 L (12.00-45.00)
[2021-05-14] MEDS: MORPHINE SULFATE 4 MG/ML SYRINGE IV PRN ×2 (11:32→16:13)
[2021-05-14] MEDS: HYDROcodone/APAP 5-325MG 1 EACH TAB PO PRN (13:25)
[2021-05-14] MEDS: SENNOSIDES-DOCUSATE SODIUM 1 EACH TAB PO SCH (20:44)
[2021-05-14] MEDS: MIRTAZAPINE 15 MG TAB PO SCH (20:46)
[2021-05-15] MEDS: HYDROcodone/APAP 5-325MG 1 EACH TAB PO PRN ×2 (04:33→13:10)
[2021-05-15] MEDS: SODIUM CHLORIDE 0.9% 1,000 ML IV SCH ×2 (05:09→15:03)
[2021-05-15] MEDS: IPRATROPIUM 0.5 MG/2.5 ML NEBU INHALATION SCH ×4 (08:15→21:01)
[2021-05-15] MEDS: SYMBICORT 160-4.5 MCG INHALER INHALATION SCH ×2 (08:15→21:01)
[2021-05-15] MEDS: SODIUM CHLORIDE TAB 1 GM TAB PO SCH ×2 (08:56→16:55)
[2021-05-15] MEDS: ENOXAPARIN 30 MG/0.3 ML SYRINGE SQ SCH (08:56)
[2021-05-15] MEDS: GABAPENTIN 300 MG CAP PO SCH ×2 (08:56→21:26)
[2021-05-15] MEDS: HYDROcodone/APAP 10-325MG 1 EACH TAB PO SCH ×2 (08:57→21:24)
--- NOTE | 2021-05-15 09:38 | P.PN ---
Subjective Progress Note Date: 05/15/21 No new complaints. Mildly hypotensive this morning, asymptomatic. Objective - Vital Signs Vital signs: Vital Signs Temp 99.4 F 05/15/21 09:13 Pulse 104 H 05/15/21 09:13 Resp 16 05/15/21 09:13 BP 102/52 05/15/21 09:13 Pulse Ox 100 05/15/21 09:13 Intake & Output 05/14/21 05/15/21 05/15/21 18:59 06:59 18:59 Intake Total 200 Output Total 400 1050 Balance -200 -1050 Intake: Oral 200 Output: Urine 400 1050 Other: Voiding Method Indwelling Catheter # Voids 1 1 # Bowel Movements 1 - Exam Gen: asleep, resting comfortably HEENT: normocephalic, atraumatic, good hearing acuity, moist mucous membranes Resp: good air exchange, breathing comfortably with no accessory muscle use CVS: good distal perfusion x 4, GI: soft, NTTP, ND : no SPT, no CVAT, dunbar catheter not present MSK: no pitting edema, no clubbing Neuro: non-focal, moving all extremities Psych: cooperative, euthymic mood - Labs CBC & Chem 7: 05/13/21 20:18 05/13/21 05:41 Assessment and Plan Assessment: Preoperative evaluation for right hip fracture -Patient with METS > 4, although with sodium 129. Continue with gentle hydration and monitor BMP -Defer management including pain control and DVT prophylaxis to the surgery service -Doing well POD 1 following procedure Acute Blood Loss Anemia -repeat CBC today -start oral iron Chronic conditions: COPD, Fibromyalgia, Mood Disorder -Continue with home meds as reconciled -Pending PT/OT eval
[2021-05-15 09:50] LABS: African American GFR (CKD) 136.4 (60.0-200.0); Anion Gap 7.2 mmol/L (4.00-12.00); BUN/Creat Ratio 26.67 Ratio (12.00-20.00); Calcium 7.7 mg/dL (8.7-10.3); Carbon Dioxide 26.8 mmol/L (21.6-31.8); Non-African American GFR(CKD) 117.6 (60.0-200.0); Potassium 3.8 mmol/L (3.5-5.5)
--- NOTE | 2021-05-15 10:50 | P.DS ---
Providers Date of admission: 05/12/21 14:08 Expected date of discharge: 05/15/21 Attending physician: Theron Pierson DO Consults: 05/12/21 14:04 Consult Physician Urgent Consulting Provider: Gabo Mckee Consult Reason/Comments: Surgical clearance medical management Do you want consulting provider notified?: Yes Primary care physician: Kayy Vail Hospital Course: Hospital Course: Date of admission: 05/12/2021 Date of discharge: 05/15/2021 Admission diagnosis: Right intertrochanteric hip fracture status post fall Discharge diagnosis: Same Attending physician: Dr. Pierson Surgical procedures: Right hip IM Nail Brief history: Patient is a 66-year-old female with a history of right intertrochanteric hip fracture status post fall. We opted to proceed with right hip IM Nail. Consent obtained Hospital course: Details of patient's surgery can be found in operative report. Patient tolerated the procedure well and was subsequently transported to orthopedic floor. Patient's orthopeidc and medical care was provided daily. Patient had daily laboratory tests performed for evaluation of overall blood counts. Patient had daily physical therapy to include strengthening range of motion as well as education with walker ambulation. Patient was treated with Lovenox for their postoperative DVT prophylaxis during their inpatient stay. Patient was noted to have a relatively uneventful postoperative course. Patient reported satisfactory pain control with oral pain medications by postoperative day 2. Patient showed satisfactory progress with physical therapy. Patient moved steadily through the program and had no difficulty meeting the goals by postoperative day 2. Given patient's otherwise satisfactory course and having met physical therapy goals, plan is to discharge patient to [facility] rehab on postoperative day 2. Discharge condition/disposition: Patient will be discharged to [facility] in stable condition. Discharge medications: Instructions are given on resumption of patient's normal daily medications per primary care recommendation, in addition patient will be prescribed 1-2 [place] 5 mg/325 mg every 6 hours; Xarelto 10 mg QD; Senna, Flexeril 10 mg. Do NOT exceed 4000 mg Tylenol per day Discharge instructions: 1. Wound care and infection precautions, keep incision dry and covered while showering, no lotions, creams, moisturizers. No soaking, tubs, pools, hottubs. Do not scrub over the incision. 2. Weight-bear as tolerated with walker / cane until follow-up. 3. Ice and elevate when necessary. Do not exceed 20 minutes per hour with ice pack. 4. Utilize compression sleeve until seen at first follow up appointment. 5. Visiting nursing care. 6. Home physical therapy. 7. Pain meds and anticoagulants per prescription. 8. Pain medication has potential to cause constipation. Increase oral fluid and fiber intake. Contact primary care provider if you have not had a bowel movement within 48 hours after discharge 9. No anti-inflammatory medication until discussed at first post operative visit, this including Motrin, Aleve, Mobic, Diclofenac. 10. Follow up in office at 2 weeks postop with Thanh Torrez PA-C / Conor Cho PA-C 11. Follow up with your primary care doctor 7-10 days after discharge. 12. Contact [facility] with any questions, . Assessment: Right hip intertrochanteric fracture status post fall Procedures: Right hip IM nail Patient Condition at Discharge: Good Plan - Discharge Summary Discharge Rx Participant: Yes New Discharge Prescriptions: New Cyclobenzaprine [Flexeril] 10 mg PO HS #20 tab HYDROcodone/APAP 5-325MG [[place] 5-325] 1 - 2 tab PO Q6HR PRN #24 tab PRN Reason: Pain Sennosides [Senna] 8.6 mg PO BID #20 tablet Rivaroxaban [Xarelto] 10 mg PO DAILY #14 tab No Action Omeprazole [PriLOSEC] 20 mg PO DAILY Tiotropium 2.5 Mcg/Puff [Spiriva Respimat 2.5 Mcg] 2 puff INHALATION RT-DAILY Sodium Chloride Tab 1 gm PO TID Potassium Chloride ER [K-Dur 10] 10 meq PO BID Cholecalciferol [Vitamin D3 (25 Mcg = 1000 Iu)] 100 mcg PO DAILY Methocarbamol [Robaxin-750] 750 mg PO TID HYDROcodone/APAP 10-325MG [[place] 10-325] 1 tab PO BID Gabapentin 600 mg PO BID@0900,2100 Gabapentin 300 mg PO DAILY@1400 Fluticasone Propion/Salmeterol [Wixela 500-50 Inhub] 1 puff INHALATION RT-BID Albuterol Sulfate [Ventolin HFA] 2 puff INHALATION RT-QID PRN PRN Reason: Shortness Of Breath Mirtazapine [Remeron] 15 mg PO HS Furosemide [Lasix] 20 mg PO DAILY Discharge Medication List Omeprazole [PriLOSEC] 20 mg PO DAILY 07/07/14 [History] Albuterol Sulfate [Ventolin HFA] 2 puff INHALATION RT-QID PRN 05/12/21 [History] Cholecalciferol [Vitamin D3 (25 Mcg = 1000 Iu)] 100 mcg PO DAILY 05/12/21 [History] Fluticasone Propion/Salmeterol [[place]ixela 500-50 Inhub] 1 puff INHALATION RT-BID 05/12/21 [History] Furosemide [Lasix] 20 mg PO DAILY 05/12/21 [History] Gabapentin 300 mg PO DAILY@1400 05/12/21 [History] Gabapentin 600 mg PO BID@0900,2100 05/12/21 [History] HYDROcodone/APAP 10-325MG [[place] 10-325] 1 tab PO BID 05/12/21 [History] Methocarbamol [Robaxin-750] 750 mg PO TID 05/12/21 [History] Mirtazapine [Remeron] 15 mg PO HS 05/12/21 [History] Potassium Chloride ER [K-Dur 10] 10 meq PO BID 05/12/21 [History] Sodium Chloride Tab 1 gm PO TID 05/12/21 [History] Tiotropium 2.5 Mcg/Puff [Spiriva Respimat 2.5 Mcg] 2 puff INHALATION RT-DAILY 05/12/21 [History] Cyclobenzaprine [Flexeril] 10 mg PO HS #20 tab 05/15/21 [Rx] HYDROcodone/APAP 5-325MG [[place] 5-325] 1 - 2 tab PO Q6HR PRN #24 tab 05/15/21 [Rx] Rivaroxaban [Xarelto] 10 mg PO DAILY #14 tab 05/15/21 [Rx] Sennosides [Senna] 8.6 mg PO BID #20 tablet 05/15/21 [Rx] Follow up Appointment(s)/Referral(s): Nonstaff,Physician [REFERRING] - 1-2 days Theron Pierson DO [Doctor of Osteopathic Medicine] - 2 Weeks Patient Instructions/Handouts: Hip Fracture (GEN) Activity/Diet/Wound Care/Special Instructions: Discharge instructions: 1. Wound care and infection precautions, keep incision dry and covered while showering, no lotions, creams, moisturizers. No soaking, tubs, pools, hottubs. Do not scrub over the incision. 2. Weight-bear as tolerated with walker / cane until follow-up. 3. Ice and elevate when necessary. Do not exceed 20 minutes per hour with ice pack. 4. Utilize compression sleeve until seen at first follow up appointment. 5. Visiting nursing care. 6. Home physical therapy. 7. Pain meds and anticoagulants per prescription. 8. Pain medication has potential to cause constipation. Increase oral fluid and fiber intake. Contact primary care provider if you have not had a bowel movement within 48 hours after discharge 9. No anti-inflammatory medication until discussed at first post operative visit, this including Motrin, Aleve, Mobic, Diclofenac. 10. Follow up in office at 2 weeks postop with Thanh Torrez PA-C / Conor Cho PA-C 11. Follow up with your primary care doctor 7-10 days after discharge. 12. Contact [facility] with any questions, . Discharge Disposition: TRANSFER TO SNF/ECF
--- NOTE | 2021-05-15 11:04 | P.PN ---
Subjective Progress Note Date: 05/15/21 Principal diagnosis: Postoperative day #2 Right hip intertrochanteric fracture status post fall Patient was seen at bedside this morning eating breakfast. She says she is doing much better and got up with physical therapy earlier this morning as well as yesterday. She said she did walk around the room old that. She says she still does have some hip pain, but it is tolerable. She is very thankful for the surgery so she can walk again. Patient says she has lost up to back to doing. Patient says she has been using incentive spirometer throughout the day. Patient does not say she has had a bowel movement, however, she says she has passed flatus. Patient says she is ready to go to rehab. Patient denies chest pain, fever, shortness of breath, nausea, vomiting, change in vision, saddle anesthesia, loss of bowel/bladder control. Objective - Vital Signs Vital signs: Vital Signs Temp 99.4 F 05/15/21 09:13 Pulse 104 H 05/15/21 09:13 Resp 16 05/15/21 09:13 BP 102/52 05/15/21 09:13 Pulse Ox 100 05/15/21 09:13 Intake & Output 05/14/21 05/15/21 05/15/21 18:59 06:59 18:59 Intake Total 200 Output Total 400 1050 Balance -200 -1050 Intake: Oral 200 Output: Urine 400 1050 Other: Voiding Method Indwelling Catheter # Voids 1 1 # Bowel Movements 1 - Exam Incision is clean, dry, and intact. The tape and ABDs are in good condition. There is minimal soft tissue swelling and ecchymosis surrounding the medial and lateral aspects of the incision. Calf is soft, no tenderness with palpation. Plantar flexion, dorsiflexion, EHL, FHL are intact. Sensory exam to light touch throughout the extremity is intact, dorsal pedis pulses 2+. Inspection: No evidence of open fractures. Negative for any significant discoloration other than as noted. Negative for nodules, erythema. Sensation: Sensation is intact in bilateral upper extremities symmetric, equal in distribution. Sensation is intact in bilateral lower extremities symmetric, equal in distribution Palpation: tenderness to palpation over the proximal right femur anterolaterally. Nontender to palpation throughout rest of exam Range of motion: Limited range of motion of hip flexion/extension and knee flexion/extension due to recent surgery and patient's pain status Bilateral upper extremities full range of motion in elbow extension/flexion as well as sh oulder internal and external rotation abduction and forward elevation. Left lower extremity full range of motion and knee flexion extension and hip flexion extension. Plantar and dorsiflexion full range of motion bilaterally. Patient is able to dorsi and plantarflex, analisa, invert right foot fully and wiggle toes in right foot Motor: Strength 5 out of 5 in upper extremities as well as battery assembler dry cell strength. Left lower extremity 5/5 in resisted flexion extension and hip flexion extension. Right leg exam patient is able to dorsi and plantarflex right foot as well as analisa and invert against resistance 5/5. Knee flexion/extension as well as hip flexion/extension limited due to patient recent surgery and being in pain. Neurovascular status/tensioning signs: Refill under 3 seconds bilaterally in lower and upper extremities. Skin mildly warm to touch in hands bilaterally as well as bilaterally in the lower extremities. Dorsalis pedis pulses intact, 2+ bilaterally. Radial pulses intact, 2+ bilaterally. Negative Homans bilaterally. Negative Price's bilaterally. Negative clonus upon dorsiflexing feet bilaterally. - Labs CBC & Chem 7: 05/13/21 20:18 05/15/21 05:19 Labs: Abnormal Lab Results - Last 24 Hours (Table) 05/15/21 Range/Units 05:19 Sodium 134 L (135-145) mmol/L BUN 8.0 L (9.0-27.0) mg/dL Creatinine 0.3 L (0.6-1.5) mg/dL BUN/Creatinine Ratio 26.67 H (12.00-20.00) Ratio Calcium 7.7 L (8.7-10.3) mg/dL Assessment and Plan Assessment: 1. Right hip intertrochanteric fracture status post fall Plan: 1. Right hip intertrochanteric fracture status post fall - surgery performed, , 05/13/2021. Patient orthopedically stable for discharge and will be discharged to [facility] today. Incision is clean, dry, intact. Sutures are in good place. Negative for any fluctuance. Onc 2. Appreciate medical management 3. Pain management - stable at this time. Patient going to rehab with [place] 5 mg/325 mg; Flexeril 10 mg 4. GI prophylaxis/DVT prophylaxis - senna; patient going to rehab with Xarelto 10 mg daily 5. PT/OT - weightbearing as tolerated with walker and assistance as needed 6. Encourage incentive spirometer use 7. Discharge planning - patient going to [facility] today, 05/15/2021. Time with Patient: Less than 30
[2021-05-15] MEDS: MORPHINE SULFATE 4 MG/ML SYRINGE IV PRN (15:06)
--- NOTE | 2021-05-15 15:58 | XR ---
EXAMINATION TYPE: XR chest 1V portable DATE OF EXAM: 05/15/2021 COMPARISON: 05/12/2021 HISTORY: Pain TECHNIQUE: FINDINGS: There is no heart failure nor confluent pneumonic infiltrate. Costophrenic angles are clear . There is mild pulmonary hyperinflation. There are no hilar masses. There are chest leads. IMPRESSION: There is evidence of COPD. No acute lung disease. No change.
[2021-05-15] MEDS: FERROUS SULFATE 325 MG TAB PO SCH (16:53)
--- NOTE | 2021-05-15 17:54 | CT ---
EXAMINATION TYPE: CT chest angio for PE DATE OF EXAM: 05/15/2021 COMPARISON: None HISTORY: Difficulty breathing, post op right IT nailing. CT DLP: 158.6 mGycm Automated exposure control for dose reduction was used. CONTRAST: Performed with IV Contrast, patient injected with 53ml mL of Isovue 370. There are 3-D post processed images. There is some diffuse pulmonary emphysema. The lungs are clear of consolidation. There is no evidence of a pulmonary mass. There is some mild scarring and atelectasis at the lung bases. Heart size is no rmal. There is no pericardial effusion. There are no hilar masses. There is no mediastinal adenopathy. There is normal contrast opacification of the pulmonary arteries. There are no filling defects. Thoracic aorta is atheromatous. Ascending a young measures 3.3 cm. Thoracic spine is intact. There is no evidence of focal bone destruction. Sternum is intact. There is no significant compression deformity. IMPRESSION: COPD. Mild fibrotic changes and subsegmental atelectasis at the lung bases. No evidence of pulmonary embolism.
--- NOTE | 2021-05-15 18:52 | P.PN ---
Progress Note - Text Progress Note Date: 05/15/21 I was called to evaluate patient for sinus tachycardia and hypoxia. Patient was noted to be tachycardic with heart rate in the 130s to 140s range. She was hemodynamically stable. O2 sat 80% on room air. Patient reported generalized weakness but otherwise denies any shortness of breath or chest pain. Lungs are diminished with no obvious wheezing. Given dose findings and recent orthopedic surgery I ordered a CT angiogram to rule out PE. CT was negative. X-ray showed significant COPD and patient reported prolonged history of smoking. She was put in on 2 L of oxygen and O2 sats was in the mid 90s. I would order bronchodilators and incentive spirometer. Tachycardia improved maybe reactive to hypoxia. We will continue to monitor closely.
[2021-05-15] MEDS: SENNOSIDES-DOCUSATE SODIUM 1 EACH TAB PO SCH (21:24)
[2021-05-15] MEDS: MIRTAZAPINE 15 MG TAB PO SCH (21:26)
[2021-05-16] MEDS: SODIUM CHLORIDE TAB 1 GM TAB PO SCH ×3 (06:08→17:08)
[2021-05-16] MEDS: ENOXAPARIN 30 MG/0.3 ML SYRINGE SQ SCH (08:28)
[2021-05-16] MEDS: FERROUS SULFATE 325 MG TAB PO SCH (08:29)
[2021-05-16] MEDS: GABAPENTIN 300 MG CAP PO SCH ×2 (08:29→22:25)
[2021-05-16] MEDS: HYDROcodone/APAP 10-325MG 1 EACH TAB PO SCH ×2 (08:29→22:25)
[2021-05-16] MEDS: IPRATROPIUM 0.5 MG/2.5 ML NEBU INHALATION SCH ×4 (08:43→20:22)
[2021-05-16] MEDS: SYMBICORT 160-4.5 MCG INHALER INHALATION SCH ×2 (08:43→20:20)
[2021-05-16 09:24] LABS: Basophils # (A) 0.03 X 10*3/uL (0.00-0.10); Basophils % (A) 0.3 %; HCT 22.6 % (37.2-46.3); Lymphocytes # (A) 2.03 X 10*3/uL (0.90-5.00); Lymphocytes % (A) 20.6 %; MCV 103.2 fL (80.0-97.0); Mean Platelet Volume 10.1 fL (9.5-12.2); Monocytes # (A) 1.46 X 10*3/uL (0.20-1.00); Monocytes % (A) 14.8 %; Neutrophils # (A) 6.17 X 10*3/uL (1.80-7.70); Neutrophils % (A) 62.5 %; Platelet Count 336 X 10*3/uL (140-440); RBC 2.19 X 10*6/uL (4.10-5.20); RDW 13.9 % (11.5-14.5); WBC 9.87 X 10*3/uL (4.50-10.00)
--- NOTE | 2021-05-16 09:41 | P.PN ---
Subjective Progress Note Date: 05/16/21 Principal diagnosis: Postoperative day #3 Right hip intertrochanteric fracture status post fall Patient was seen at bedside this morning eating breakfast. She says she is doing much better and got up with physical therapy earlier this morning as well as yesterday. She says she still does have some hip pain, but it is tolerable. Patient says she has been using incentive spirometer throughout the day. Patient says she has been up with physical therapy yesterday and walks around the room to the couch into the door and back. Patient says she has had bowel movement this morning as well as passing flatus. Patient says she is ready to go to rehab. Patient denies chest pain, fever, shortness of breath, nausea, vomiting, change in vision, saddle anesthesia, loss of bowel/bladder control. Objective - Vital Signs Vital signs: Vital Signs Temp 98.9 F 05/16/21 07:24 Pulse 123 H 05/16/21 07:58 Resp 16 05/16/21 07:58 BP 144/73 05/16/21 07:24 Pulse Ox 94 L 05/16/21 07:24 Intake & Output 05/15/21 05/16/21 05/16/21 18:59 06:59 18:59 Intake Total 360 1090 Output Total 450 Balance -90 1090 Intake: Intake, IV Titration 850 Amount Sodium Chloride 0.9% 1, 750 000 ml @ 100 mls/hr IV . Q10H [facility] Rx#:[id number] ceFAZolin 2 gm In Sodium 100 Chloride 0.9% 50 ml @ 100 mls/hr IVPB Q8HR [facility] Rx# :[id number] Oral 360 240 Output: Urine 450 Other: Voiding Method Indwelling Catheter # Voids 3 2 # Bowel Movements 1 - Exam Incision is clean, dry, and intact. The tape and ABDs are in good condition. There is minimal soft tissue swelling and ecchymosis surrounding the medial and lateral aspects of the incision. Calf is soft, no tenderness with palpation. Plantar flexion, dorsiflexion, EHL, FHL are intact. Sensory exam to light touch throughout the extremity is intact, dorsal pedis pulses 2+. Inspection: No evidence of open fractures. Negative for any significant discoloration other than as noted. Negative for nodules, erythema. Sensation: Sensation is intact in bilateral upper extremities symmetric, equal in distribution. Sensation is intact in bilateral lower extremities symmetric, equal in distribution Palpation: tenderness to palpation over the proximal right femur anterolaterally. Nontender to palpation throughout rest of exam Range of motion: Limited range of motion of hip flexion/extension and knee flexion/extension due to recent surgery and patient's pain status Bilateral upper extremities full range of motion in elbow extension/flexion as well as shoulder internal and external rotation abduction and forward elevation. Left lower extremity full range of motion and knee flexion extension and hip flexion extension. Plantar and dorsiflexion full range of motion bilaterally. Patient is able to dorsi and plantarflex, analisa, invert right foot fully and wiggle toes in right foot Motor: Strength 5 out of 5 in upper extremities as well as glass grinder strength. Left lower extremity 5/5 in resisted flexion extension and hip flexion extension. Right leg exam patient is able to dorsi and plantarflex right foot as well as analisa and invert against resistance 5/5. Knee flexion/extension as well as hip flexion/extension limited due to patient recent surgery and being in pain. Neurovascular status/tensioning signs: Refill under 3 seconds bilaterally in lower and upper extremities. Skin mildly warm to touch in hands bilaterally as well as bilaterally in the lower extremities. Dorsalis pedis pulses intact, 2+ bilaterally. Radial pulses intact, 2+ bilaterally. Negative Homans bilaterally. Negative Price's bilaterally. Negative clonus upon dorsiflexing feet bilaterally. - Labs CBC & Chem 7: 05/15/21 19:33 05/15/21 05:19 Labs: Abnormal Lab Results - Last 24 Hours (Table) 05/15/21 05/15/21 Range/Units 05:19 19:33 RBC 2.19 L (4.10-5.20) X 10*6/uL Hgb 7.0 L (12.0-15.0) g/dL Hct 22.6 L (37.2-46.3) % MCV 103.2 H (80.0-97.0) fL MCHC 31.0 L (32.0-37.0) g/dL Immature Gran # 0.08 H (0.00-0.04) X 10*3/uL Monocytes # 1.46 H (0.20-1.00) X 10*3/uL Sodium 134 L (135-145) mmol/L BUN 8.0 L (9.0-27.0) mg/dL Creatinine 0.3 L (0.6-1.5) mg/dL BUN/Creatinine Ratio 26.67 H (12.00-20.00) Ratio Calcium 7.7 L (8.7-10.3) mg/dL Assessment and Plan Assessment: 1. Right hip intertrochanteric fracture status post fall Plan: 1. Right hip intertrochanteric fracture status post fall - surgery performed, , 05/13/2021. Patient orthopedically stable for discharge and will be discharged to [facility] today/tomorrow. Incision is clean, dry, intact. Sutures are in good place. Negative for any fluctuance. 2. Appreciate medical management 3. Pain management - stable at this time. Patient going to rehab with [place] 5 mg/325 mg; Flexeril 10 mg 4. GI prophylaxis/DVT prophylaxis - senna; patient going to rehab with Xarelto 10 mg daily 5. PT/OT - weightbearing as tolerated with walker and assistance as needed 6. Encourage incentive spirometer use 7. Discharge planning - patient going to [facility] today, 05/16/2021 or tomorrow, 05/17/2021 Time with Patient: Less than 30
--- NOTE | 2021-05-16 10:17 | P.PN ---
Subjective Progress Note Date: 05/16/21 Pts discharge held yesterday over concerns of tachycardia, o2 requirement. Pt has underlying lung disease, and oxygen requirement is low at 2L NC. CT PE ruled out pulm embolism, underlying acute lung pathology. HRs improved with oxygen. Pt working well with PT/OT, tolerating diet, having BMs. Pending SNF placement for rehab on monday. Objective - Vital Signs Vital signs: Vital Signs Temp 98.9 F 05/16/21 07:24 Pulse 123 H 05/16/21 07:58 Resp 16 05/16/21 07:58 BP 144/73 05/16/21 07:24 Pulse Ox 94 L 05/16/21 07:24 Intake & Output 05/15/21 05/16/21 05/16/21 18:59 06:59 18:59 Intake Total 360 1090 Output Total 450 Balance -90 1090 Intake: Intake, IV Titration 850 Amount Sodium Chloride 0.9% 1, 750 000 ml @ 100 mls/hr IV . Q10H [facility] Rx#:[id number] ceFAZolin 2 gm In Sodium 100 Chloride 0.9% 50 ml @ 100 mls/hr IVPB Q8HR [facility] Rx# :[id number] Oral 360 240 Output: Urine 450 Other: Voiding Method Indwelling Catheter # Voids 3 2 # Bowel Movements 1 - Exam Gen: asleep, resting comfortably HEENT: normocephalic, atraumatic, good hearing acuity, moist mucous membranes Resp: good air exchange, breathing comfortably with no accessory muscle use CVS: good distal perfusion x 4, GI: soft, NTTP, ND : no SPT, no CVAT, dunbar catheter not present MSK: no pitting edema, no clubbing Neuro: non-focal, moving all extremities Psych: cooperative, euthymic mood - Labs CBC & Chem 7: 05/15/21 19:33 05/15/21 05:19 Labs: Abnormal Lab Results - Last 24 Hours (Table) 05/15/21 Range/Units 19:33 RBC 2.19 L (4.10-5.20) X 10*6/uL Hgb 7.0 L (12.0-15.0) g/dL Hct 22.6 L (37.2-46.3) % MCV 103.2 H (80.0-97.0) fL MCHC 31.0 L (32.0-37.0) g/dL Immature Gran # 0.08 H (0.00-0.04) X 10*3/uL Monocytes # 1.46 H (0.20-1.00) X 10*3/uL Assessment and Plan Assessment: Preoperative evaluation for right hip fracture -Patient with METS > 4, although with sodium 129. Continue with gentle hydratio n and monitor BMP -Defer management including pain control and DVT prophylaxis to the surgery service -Doing well POD 1 following procedure Acute Blood Loss Anemia -repeat CBC today -start oral iron Chronic conditions: COPD, Fibromyalgia, Mood Disorder -Continue with home meds as reconciled -oxygen PRN; patient will likely require long-term Oxygen -CT PE was neg for acute pathology -Pending PT/OT eval
[2021-05-16] MEDS: HYDROcodone/APAP 5-325MG 1 EACH TAB PO PRN ×2 (12:54→18:48)
[2021-05-16] MEDS: MIRTAZAPINE 15 MG TAB PO SCH (22:25)
[2021-05-16] MEDS: SENNOSIDES-DOCUSATE SODIUM 1 EACH TAB PO SCH (22:25)
[2021-05-17] MEDS: SODIUM CHLORIDE TAB 1 GM TAB PO SCH ×2 (03:34→07:48)
[2021-05-17] MEDS: SYMBICORT 160-4.5 MCG INHALER INHALATION SCH (07:20)
[2021-05-17] MEDS: IPRATROPIUM 0.5 MG/2.5 ML NEBU INHALATION SCH ×2 (07:20→10:53)
[2021-05-17] MEDS: MORPHINE SULFATE 4 MG/ML SYRINGE IV PRN (07:43)
[2021-05-17] MEDS: HYDROcodone/APAP 10-325MG 1 EACH TAB PO SCH (07:46)
[2021-05-17] MEDS: GABAPENTIN 300 MG CAP PO SCH (07:47)
[2021-05-17] MEDS: FERROUS SULFATE 325 MG TAB PO SCH (07:48)
[2021-05-17] MEDS: ENOXAPARIN 30 MG/0.3 ML SYRINGE SQ SCH (07:54)
[2021-05-17 08:10] VITALS: BP 137/78; RESP 21; TEMP 97.3
[2021-05-17 08:41] LABS: Basophils % (A) 0 %; Eosinophils # (A) 0.2 k/uL (0-0.7); Eosinophils % (A) 2 %; HCT 25.2 % (34.0-46.0); Lymphocytes % (A) 11 %; MCH 32.1 pg (25.0-35.0); MCV 100.3 fL (80.0-100.0); Macrocytosis Slight; Mean Platelet Volume 6.7; Monocytes # (A) 0.5 k/uL (0-1.0); Monocytes % (A) 6 %; Neutrophils # (A) 7.3 k/uL (1.3-7.7); Neutrophils % (A) 80 %; Platelet Count 406 k/uL (150-450); RBC 2.51 m/uL (3.80-5.40); RDW 13.9 % (11.5-15.5); WBC 9.1 k/uL (3.8-10.6)
[2021-05-17 08:45] LABS: HGB 8.1 gm/dL (11.4-16.0)
[2021-05-17 11:12] VITALS: PULSE 119
--- NOTE | 2021-05-17 12:57 | P.PN ---
Subjective Progress Note Date: 05/17/21 No new complaints today. Pain controlled after pain medication this AM. No dyspnea, no palpitations. CBC shows improved Hgb without need for transfusion. Objective - Vital Signs Vital signs: Vital Signs Temp 97.3 F L 05/17/21 08:09 Pulse 122 H 05/17/21 08:09 Resp 21 05/17/21 08:09 BP 137/78 05/17/21 08:09 Pulse Ox 94 L 05/17/21 08:09 Intake & Output 05/16/21 05/17/21 05/17/21 18:59 06:59 18:59 Intake Total 820 100 Balance 820 100 Intake: Intake, IV Titration 100 100 Amount ceFAZolin 2 gm In Sodium 100 100 Chloride 0.9% 50 ml @ 100 mls/hr IVPB Q8HR [facility] Rx# :[id number] Oral 720 Other: Voiding Method Bedside Commode # Voids 2 2 1 # Bowel Movements 1 1 1 - Exam Gen: asleep, resting comfortably HEENT: normocephalic, atraumatic, good hearing acuity, moist mucous membranes Resp: good air exchange, breathing comfortably with no accessory muscle use CVS: good distal perfusion x 4, GI: soft, NTTP, ND : no SPT, no CVAT, dunbar catheter not present MSK: no pitting edema, no clubbing Neuro: non-focal, moving all extremities Psych: cooperative, euthymic mood - Labs CBC & Chem 7: 05/17/21 08:08 05/15/21 05:19 Labs: Abnormal Lab Results - Last 24 Hours (Table) 05/17/21 Range/Units 08:08 RBC 2.51 L (3.80-5.40) m/uL Hgb 8.1 L D (11.4-16.0) gm/dL Hct 25.2 L (34.0-46.0) % MCV 100.3 H (80.0-100.0) fL Assessment and Plan Assessment: Preoperative evaluation for right hip fracture -Patient with METS > 4, although with sodium 129. Continue with gentle hydration and monitor BMP -Defer management including pain control and DVT prophylaxis to the surgery service -Doing well POD 4 following procedure Acute Blood Loss Anemia -repeat CBC PRN -start oral iron Chronic conditions: COPD, Fibromyalgia, Mood Disorder -Continue with home meds as reconciled -oxygen PRN; patient will likely require long-term Oxygen -CT PE was neg for acute pathology -Pending PT/OT eval Patient cleared for discharge from medicine perspective.
[2021-05-17] MEDS: HYDROcodone/APAP 5-325MG 1 EACH TAB PO PRN (13:12)
[2021-05-18] MEDS ORDERED: ENOXAPARIN 40 MG/0.4 ML SYRINGE SQ SCH (09:00)
== END 2021-05-17 13:53 | DRG 481 ==
LOC: EC 13:00 → 4SSUR 14:08
PROVIDERS: ADMIT Orthopaedic Surgery; ATTEND Orthopaedic Surgery
PROC: 0QS606Z Reposition Right Upper Femur with Intramedullary Internal Fixation Device, Open Approach (ICD-10-PCS; principal; 2021-05-13 07:30)
DX: S72.21XA Displaced subtrochanteric fracture of right femur, initial encounter for closed fracture (principal); D62 Acute posthemorrhagic anemia; I95.9 Hypotension, unspecified; J44.9 Chronic obstructive pulmonary disease, unspecified; Z20.822 Contact with and (suspected) exposure to COVID-19; I44.4 Left anterior fascicular block; M48.00 Spinal stenosis, site unspecified; M79.7 Fibromyalgia; F32.9 Major depressive disorder, single episode, unspecified; F41.9 Anxiety disorder, unspecified; M81.0 Age-related osteoporosis without current pathological fracture; Z79.891 Long term (current) use of opiate analgesic; Z79.51 Long term (current) use of inhaled steroids; Z79.899 Other long term (current) drug therapy; Z90.89 Acquired absence of other organs; Z85.3 Personal history of malignant neoplasm of breast; Z90.12 Acquired absence of left breast and nipple; Z87.891 Personal history of nicotine dependence; Z98.890 Other specified postprocedural states; W01.0XXA Fall on same level from slipping, tripping and stumbling without subsequent striking against object, initial encounter; Y92.000 Kitchen of unspecified non-institutional (private) residence as the place of occurrence of the external cause
CPT/HCPCS: 36415; 71045; 71275; 73502; 80048; 80053; 81003; 82550; 82607; 82746; 83540; 83550; 85025; 85027; 85045; 85610; 85730; 87635; 93005; 94640; 94760; 96361; 96374; 96375; 99285